=== PATIENT | female | born 1985 | race Two or more races ===

== ENCOUNTER 2025-11-21 16:01 | Emergency (ER) | payer MEDICAID, SELFPAY ==
[2025-11-21 16:38] VITALS: BP 97/61; PULSE 71; RESP 18; TEMP 36.8; O2SAT 98; BMI 23.0
--- NOTE | 2025-11-21 16:38 | XR_ITS ---
EXAMINATION: Lumbar spine 3 views TECHNIQUE: AP lateral coned lateral lower lumbar spine 3 views Date and time: November 21, 2025, 1709 hours, comparison April 28, 2018 INDICATIONS: Lower back pain several weeks worse the last 2 days. FINDINGS: Moderate osteopenia Satisfactory alignment lumbar vertebral bodies on the lateral view Moderate degenerative disc disease L5-S1, progressed compared to the 2018 exam IMPRESSION: Moderate degenerative disc disease L5-S1, progressed compared to the April 28, 2018 exam
--- NOTE | 2025-11-21 16:39 | PD.EDRME ---
Rapid Medical Screening Exam RME Arrival date/time: 11/21/25 16:01 40-year-old female with no known medical history presents to the emergency room with a chief complaint of lumbar back pain x 1 day I have greeted and performed a focused initial assessment of this patient. A comprehensive ED assessment and evaluation of the patient, analysis of all test results, and completion of the medical decision making process will be conducted by additional ED providers. Chief Complaint: Back Pain/Injury Time Seen by Provider: 11/21/25 16:13 Vital signs: Vital Signs Temperature 98.2 F 11/21/25 16:38 Pulse Rate 71 11/21/25 16:38 Respiratory Rate 18 11/21/25 16:38 Blood Pressure 97/61 11/21/25 16:38 Pulse Oximetry (%) 98 11/21/25 16:38 Oxygen Delivery Method Room Air 11/21/25 16:38 Vital signs reviewed by provider: Yes Exam: Tenderness to the lumbar area the patient's spine No saddle anesthesia no loss of bowel or bladder function No numbness to the lower extremities. Normal steady gait Clinical Impression: Lumbar back sprain/lumbar proximal fracture
[2025-11-21] MEDS: KETOROLAC INJ 60 MG/2 ML VIAL 30 MG IM (17:07)
--- NOTE | 2025-11-21 19:01 | EDNOTE_ITS ---
ED Back Injury Pain RME/HPI General Chief Complaint: Back Pain/Injury Stated Complaint: BACK PAIN 07/10 Time Seen by Provider: 11/21/25 16:13 Arrival date/time: 11/21/25 16:01 This is a case of 40-year-old female with history of chronic low back pain since 2013 and DDD lumbar female in the emergency room due to lower back pain for 3 days radiating to the lateral side of the both lower extremities denies any numbness weakness tingling sensation incontinence to urine or stool persistence of the symptoms this patient decided to sought consult here in the emergency room Limitations: no limitations RME / HPI RME / HPI Narrative: 11/21/25 16:01 40-year-old female with no known medical history presents to the emergency room with a chief complaint of lumbar back pain x 1 day I have greeted and performed a focused initial assessment of this patient. A comprehensive ED assessment and evaluation of the patient, analysis of all test results, and completion of the medical decision making process will be conducted by additional ED providers. Exam: Tenderness to the lumbar area the patient's spine No saddle anesthesia no loss of bowel or bladder function No numbness to the lower extremities. Normal steady gait Impression: Lumbar back sprain/lumbar proximal fracture Related Data Home Medications ?Medication ?Instructions ?Recorded ?Confirmed cyclobenzaprine 10 mg tablet 10 mg PO TID PRN Muscle S pasm 11/09/22 11/09/22 Previous Rx's ?Medication ?Instructions ?Recorded ciprofloxacin HCl 500 mg tablet 500 mg PO BID #14 tabs 08/03/24 (Cipro) cyclobenzaprine 10 mg tablet 10 mg PO BID PRN muscle s pasm #10 11/21/25 tabs hydrocodone 5 mg-acetaminophen 325 1 tab PO Q6H PRN pa in #16 tabs 11/21/25 mg tablet lidocaine 5 % topical patch 1 patch topical QDAY #15 e a 11/21/25 (Lidoderm) Allergies Allergy/AdvReac Type Severity Reaction Status Date / Time No Known Allergies Allergy Verified 11/21/25 16:03 Review of Systems Review of Systems Systems Reviewed: All systems reviewed, normal except as documented Constitutional Constitutional: Reports system reviewed and no additional complaints, except as documented and Reports as per HPI ENT Ears, Nose, Mouth, and Throat: Denies neck pain Cardiovascular Cardiovascular: Reports system reviewed and no additional complaints, except as documented and Reports as per HPI Respiratory Respiratory: Reports system reviewed and no additional complaints, except as documented and Reports as per HPI Gastrointestinal Gastrointestinal: Reports system reviewed and no additional complaints, except as documented and Reports as per HPI Musculoskeletal Musculoskeletal: Reports system reviewed and no additional complaints, except as documented, Reports as per HPI, Reports back pain and Denies neck pain Neurologic Neurologic: Reports system reviewed and no additional complaints, except as documented and Reports as per HPI Past Medical History Past Medical History NEUROLOGIC: Negative Neurological Disorders, Cerebrovascular Accident, Transient Ischemic Attacks (TIA), Dementia, Alzheimer's Disease, Parkinson's Disease, Brain Tumor, Meningitis, Seizures, Epilepsy, Multiple Sclerosis, Cerebral Palsy, Amyotrophic Lateral Sclerosis (ALS/Nydia Gehrig's), Guillain-[place] Syndrome, Spina Bifida, Paralysis, Peripheral Neuropathy, Benoit's Palsy, Subdural Hematoma, Migraine, Head Trauma, Spinal Cord Injury or Traumatic Brain Injury CARDIAC: Negative Cardiac Disorders, Myocardial Infarction, Cardiac Arrhythmia, Atrial Fibrillation, Angina, Heart Murmur, Coronary Artery Disease, Atherosclerotic Heart Disease, Peripheral Vascular Disease, Hypercholesterolemia, Aneurysm, Congestive Heart Failure, Congenital Heart Disease, Valvular Heart Disease, Rheumatic Fever, Cardiomyopathy, Edema, Pericarditis, Cellulitis, Deep Vein Thrombosis, Hypertension, Hypotension or Varicose Veins RESPIRATORY: Negative Chronic Obstructive Pulmonary Disease (COPD), Asthma, Bronchitis, Emphysema, Pneumonia, Pulmonary Fibrosis, Cystic Fibrosis, Tuberculosis, Pulmonary Embolism, Pulmonary Edema or Sleep Apnea GASTROINTESTINAL: Positive Gastrointestinal Disorders and Gastroesophageal Reflux Disease; Negative Hepatitis, Cirrhosis, Pancreatitis, Celiac Disease, Gall Bladder Disease, Gastrointestinal Bleed, Esophageal Varices, Morrell's Esophagus, Colitis, Ulcerative Colitis, Diverticulitis, Diverticulosis, Ulcer, Colorectal Cancer, Irritable Bowel, Crohn's Disease, Obstructive Bowel, Hiatal Hernia, Hemorrhoids or Obesity GENITOURINARY: Positive Genitourinary Disorders and Kidney Stones; Negative Renal Disease, Polycystic Kidney Disease, Neurogenic Bladder, Inguinal Hernia, Dialysis, Prostate Cancer or Benign Prostatic Hyperplasia REPRODUCTIVE: Negative Breast Cancer, Endometriosis, Genital Herpes, Gonorrhea, Pelvic Inflammatory Disease, Previous Pregnancies, Syphilis, Testicular Cancer or Uterine Prolapse MUSCULOSKELETAL: Positive Musculoskeletal Disorders; Negative Muscular Dystrophy, Myasthenia Gravis, Marfan's Syndrome, Bone Cancer, Arthritis, Rheumatoid Arthritis, Osteoporosis, Degenerative Disk Disease, Gout, Scoliosis, Carpal Tunnel Syndrome, Fibromyalgia, Fractures, Degenerative Joint Disease, Osteomyelitis or Poliovirus ENT: Negative Cataracts, Glaucoma, Blind, Retinal Detachment, Macular Degeneration, Ear Infection, Deafness, Head Trauma or Eye Prosthesis ENDOCRINE: Negative Endocrine Disorders, Diabetes Mellitus Type 1, Diabetes Mellitus Type 2, Hypoglycemia, Jose's Syndrome, [place]'s Disease, Hyperthyroidism, Hypothyroidism, Parathyroid Disease, Pituitary Disease, Systemic Lupus Erythematosus, Syndrome of Inappropriate Antidiuretic Hormone (SIADH), Adrenal Disease or Graves' Disease HEMATOLOGIC: Negative Blood Disorders, Anemia, Leukemia, Hemophilia, Thalassemia, Sickle Cell Disease or Clotting Problems PSYCHO/SOCIAL: Positive Depression and Anxiety; Negative Psychiatric Problems, Schizophrenia, Recreational Drug Use, Bipolar Disorder, Self-Mutilation, Attention Deficit Disorder, Attention Deficit Hyperactivity Disorder, Depression, Post Traumatic Stress Disorder or Eating Disorder OTHER HISTORY: Negative Hospitalization, Autoimmune Disease, Down Syndrome, Autism, Developmental Delay, Shingles, Falls, Blood Transfusions, Blood Transfusion Reaction, Anesthesia Reactions, Organ Transplant, Chemotherapy, Radiation Therapy, Hyperbaric Therapy, MRSA, VRSA, Vancomycin-Resistant Enterococci, Human Immunodeficiency Virus (HIV), Chicken Pox, Measles, Mumps, Rubella ([place] Measles), Pertussis, Clostridium Difficile, Cancer, Breast Cancer, Cervical Cancer, Colorectal Cancer, Lung Cancer, Ovarian Cancer, Prostate Cancer or Testicular Cancer Family History FAMILY HISTORY: Negative Family Psychiatric Problems, Family Respiratory Disorders, Family Cardiac Disorders, Family Gastrointestinal Problems, Family Cancer, Family Surgery or Family Anesthesia Reaction Surgical History SURGICAL: Positive Tubal Ligation; Negative Cardiac Surgery, Open Heart Surgery, Coronary Artery Bypass Graft, Valve Replacement, Vascular Surgery, Coronary Stent, Cardiac Catheterization, Pacemaker, Angiogram, Auto Implanted Cardiovert Defib, Carotid Endarterectomy, Endocrine Surgery, Thyroidectomy, Ear Surgery, Tympanostomy Tube, Eye Surgery, Nose Surgery, Oral Surgery, Tonsillectomy, Adenoidectomy, Cochlear Implant, Corneal Transplant, Throat Surgery, Abdominal Surgery, Tracheostomy, Gastric Bypass Surgery, Gastrostomy, Bowel Surgery, Nephrectomy, Transurethral Resection, Joint Replacement, Amputation, Open Reduction Internal Fixation, Arthroscopy, Neurologic Surgery, Brain Shunt, Mastectomy, Lumpectomy, Hysterectomy, Section or Organ Transplant Social History SMOKING STATUS: Current every day smoker SUBSTANCE USE: methamphetamine and other (benzo drugs hx) ED Exam General Limitations: Present no limitations General appearance: Present alert, in no apparent distress and other (Patient is awake alert oriented not in distress nontoxic looking well-hydrated well- nourished) Head Head exam: Present atraumatic, normocephalic and normal inspection Eye Eye exam: Present normal appearance, PERRL and EOMI ENT ENT exam: Present normal exam, normal oropharynx and mucous membranes moist Neck Neck exam: Present normal inspection, full ROM and trachea midline; Absent tenderness, meningismus, lymphadenopathy or thyromegaly Chest Chest inspection: Present normal inspection and symmetric chest wall rise; Absent tenderness Respiratory Respiratory exam: Present normal lung sounds bilaterally; Absent respiratory distress, wheezes, stridor, accessory muscle use or prolonged expiratory phase Cardiovascular Cardiovascular exam: Present regular rate, normal rhythm and normal heart sounds; Absent bradycardia, tachycardia, irregular rhythm, systolic murmur or diastolic murmur Abdominal Exam Abdominal exam: Present soft and normal bowel sounds; Absent distention, tenderness, guarding, rebound, rigidity, diminished bowel sounds, hyperactive bowel sounds, hypoactive bowel sounds or organomegaly Extremities Exam Extremities exam: Present normal inspection and full ROM Expanded Lower Extremity Exam Hip/Pelvis exam: Present normal inspection and full ROM; Absent tenderness or swelling Upper leg exam: Present normal inspection and full ROM; Absent tenderness or swelling Knee exam: Present normal inspection and full ROM; Absent tenderness or swelling Lower leg exam: Present normal inspection, full ROM, Achilles tendon intact and other (Negative Balbuena's sign); Absent tenderness, swelling or Homans' sign Back Exam Back exam: Present normal inspection, full ROM, tenderness (Mild to moderate tenderness L1-L5 with muscle spasm no crepitation no deformity no redness no swelling no kyphosis no lordosis) and muscle spasm; Absent CVA tenderness (R), CVA tenderness (L), paraspinal tenderness, vertebral tenderness, rashes, sciatic notch tenderness (R), sciatic notch tenderness (L), straight leg raise (R) or straight leg raise (L) Neurological Exam Neurological exam: Present alert, oriented X3, CN II-XII intact, normal gait and reflexes normal; Absent motor sensory deficit Psychiatric Psychiatric exam: Present normal affect and normal mood Skin Skin exam: Present warm, dry, intact, normal color and other (Excellent skin turgor) Course Quality Measures none Orders Category Date Time Status XR lumbar spine 2-3V Stat Exams 11/21/25 16:38 Completed HYDROcodone*/APAP 5/325 [[place] 5/325] Med 11/21/25 19:00 Discontinued 1 tab PO X1 ONE Ketorolac Inj [Toradol Inj] Med 11/21/25 16:38 Discontinued 30 mg IM X1 ONE dexAMETHasone INJ [Decadron Inj] Med 11/21/25 19:00 Discontinued 10 mg IM X1 ONE Vital Signs Vital signs: Vital Signs Temperature 98.2 F 11/21/25 16:38 Pulse Rate 71 11/21/25 16:38 Respiratory Rate 18 11/21/25 16:38 Blood Pressure 97/61 11/21/25 16:38 Pulse Oximetry (%) 98 11/21/25 16:38 Oxygen Delivery Method Room Air 11/21/25 16:38 Oxygen saturation is 98% in room air normal Back Pain / Injury MDM Narrative MDM Narrative:: This is a case of 40-year-old female with history of chronic low back pain since 2013 and DDD lumbar female in the emergency room due to lower back pain for 3 days radiating to the lateral side of the both lower extremities denies any nu mbness weakness tingling sensation incontinence to urine or stool persistence of the symptoms this patient decided to sought consult here in the emergency room physical examination patient is awake alert oriented not in distress nontoxic looking vital signs stable BP stable not tachycardic not tachypneic afebrile and nonhypoxic patient abdominal exam is benign nonsurgical no guarding no rebound no rigidity no tenderness lumbar exam noted mild to moderate tenderness on the left L1-L5 no crepitation no deformity no paraspinal no paravertebral tenderness but with muscle spasm leg raise exam is negative steady gait ROM is intact but with pain neurovascular is intact no acute process no lordosis patient was given Toradol [place] and dexamethasone which improve and resolve the pain patient was advised to follow-up with PCP to be referred to neurosurgeon for MRI to rule out herniated disc and pain management doctor for pain control recurrence persistent worsening symptoms or any emergent concern return to the emergency room immediately or call 911 at the time of exam no signs and symptoms of cauda equina Patient was discharged with comfortable condition walking with stable gait. Patient verbalized no further complains explained diagnosis and answered patient question. Patient is comfortable with the proposed management plan including the need to follow up with his/her primary care physician and any specialist if applicable Discussed patient for any urgent condition or worsening sx, He/She needed to go to emergency room immediately or call 911. Patient acknowledge the responsibility to follow up as instructed and to monitor her/his symptoms. For any persistence of the symptoms for more than 3-5 days return precaution advised. Discussed the result of the test and was given printed discharge instruction Patient data External records reviewed:: [facility] previous records Clinical information provided by:: patient Social determinants that could affect healthcare access:: none Patient has the following chronic illnesses:: None How is presenting disease/condition affected by chronic disease/condition?: no chronic disease Evaluation data The following diagnostics were reviewed and interpreted by me:: radiology exam(s) Lab and/or radiology exams considered but not ordered:: Reviewed Interpretation Summary: Reviewed Medications / Prescriptions Medications or Prescriptions considered but not ordered:: Given Medication administrations:: Medication Administration History Discontinued Medications Hydrocodone Bitart/Acetaminophen (Hydrocodone/Apap 5/325 Tablet) 1 tab PO X1 ONE Stop: 11/21/25 19:01 Dexamethasone Sodium Phosphate (Dexamethasone Sod Phos Inj 10 Mg/Ml Vial) 10 mg IM X1 ONE Stop: 11/21/25 19:01 Ketorolac Tromethamine (Ketorolac Inj 60 Mg/2 Ml Vial) 30 mg IM X1 ONE Stop: 11/21/25 16:39 Last Admin: 11/21/25 17:07 Dose: 30 mg Documented By: LP Given Consultations Consultation(s) initiated? (list below): No Diagnosis Differential diagnosis back pain/injury: lumbar radiculopathy, sciatica and other (Herniated disc lumbar bulging disc DDD muscle spasm) Most likely diagnosis given after review of the tests above:: Back muscle spasm lumbar bulging disc Admission Indicated Admission indicated?: not indicated Explain why admission is indicated or not indicated:: not indicated Admission Request Was there a request for admission?: No Admission Attestation Admission request attestation: not indicated Disposition Plan Disposition Plan: Discharge Discharge Attestation Discharge Attestation: The patient and all family members were given an opportunity to ask questions and understood the discharge instructions. Discharge instructions specifically effects, indications for sooner follow up or return to the emergency department, and the expected course of current diagnosis. Patient condition: Stable Discharge Plan Plan Patient Disposition: HOME (Self Care) Patient condition on transfer: Stable Prescriptions/Referrals Prescriptions/Med Rec: New hydrocodone-acetaminophen 5-325 mg tablet 1 tab PO Q6H MDD max 4 tabs per day PRN (Reason: pain) Qty: 16 0RF cyclobenzaprine 10 mg tablet 10 mg PO BID PRN (Reason: muscle spasm) Qty: 10 0RF lidocaine [Lidoderm] 5 % adhesive patch,medicated 1 patch topical QDAY Qty: 15 0RF Rx Instructions: leave on most painful area for up to 12 hrs No Action ciprofloxacin HCl [Cipro] 500 mg tablet 500 mg PO BID Qty: 14 0RF cyclobenzaprine 10 mg tablet 10 mg PO TID PRN (Reason: Muscle Spasm) Patient Comments: TAKE 1 TABLET BY MOUTH THREE TIMES A DAY NEEDED FOR MUSCLE SPASM FOR 10 DAYS Referrals: No Primary/Family,Physician [Primary Care Provider] - In 1 week Problem List Clinical Impression: Chronic low back pain, DDD (degenerative disc disease), lumbar Patient/Caregiver Discharge Instructions Education Materials: ED Back Care Tips, ED Back Pain (Acute or Chronic), ED Chronic Pain, ED Degenerative Disk Disease Additional Instructions: Follow-up with your primary care physician in 2 days for reevaluation and to be referred to neurosurgeon for further evaluation and treatment of DDD lumbar for possible MRI to rule out any [place] days and to be referred to pain management doctor for pain control recurrence persistent worsening symptoms or any emergent concerns such as numbness weakness tingling sensation incontinence to urine or stool and return to the emergency room immediately or call 911 ice pack and warm compress as needed for pain no lifting no pulling no pushing advsied Print Language: Qatari Stand Alone Forms: Taylor Award Info., Work/School Release, Patient Portal Info Letter PA/CIRCUIT TESTER Supervising Physician PA/DAYANARA Supervising Physician: Dr Keller
[2025-11-21] MEDS: HYDROcodone/APAP 5/325 TABLET 1 TAB PO (19:23)
== END 2025-11-21 19:57 | disposition home or self-care (01) ==
PROVIDERS: Emergency Provider Emergency Medicine
DX: M51.360 Other intervertebral disc degeneration, lumbar region with discogenic back pain only (principal)
CPT/HCPCS: 72100; 96372; 99283; J1100; J1885; A9270